=== PATIENT | female | born 1970 | race Caucasian/White ===

== ENCOUNTER 2016-09-04 15:45 | Emergency (ER) | payer SELFPAY | END 2016-09-04 16:00 | disposition left against medical advice (07) | LOC: ED 15:45 | DX: F41.9 Anxiety disorder, unspecified (principal); Z53.21 Procedure and treatment not carried out due to patient leaving prior to being seen by health care provider ==

== ENCOUNTER 2018-09-23 20:47 | Emergency (ER) | payer OTHER ==
--- NOTE | 2018-09-23 21:32 | Emergency Department Report ---
Blank Doc - Documentation Documentation: This is a 48-year-old female that presents with paraspinal cervical pain. Den ies any headache. 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 Denies any injuries. Denies any fever. This initial assessment/diagnostic orders/clinical plan/treatment(s) is/are subject to change based on patient's health status, clinical progression and re- assessment by fellow clinical providers in the ED. Further treatment and workup at subsequent clinical providers discretion. Patient/guardians urged not to elope from the ED as their condition may be serious if not clinically assessed and managed. Initial orders include: 1- Patient sent to [facility] for further evaluation and treatment 2- xr cervical spine
[2018-09-23 21:33] VITALS: BP 140/73
--- NOTE | 2018-09-23 23:32 | XRay Report ---
PROCEDURE: XR SPINE CERVICAL 2-3V TECHNIQUE: Lateral, swimmer's lateral view, AP and odontoid views were obtained. HISTORY: neck pain COMPARISONS: None FINDINGS: No fracture or subluxation is visualized. Posterior elements are intact. The height of the disc space s are well-maintained. Anterior osteophytic spurring is visualized at C5-C6. Minimal posterior osteop hytic spurs are also present at this level. Disc spaces are otherwise well-maintained. IMPRESSION: Mild degenerative disc disease visualized at C5-C6. No other abnormalities are identified.. This document is electronically signed by Jg Mcduffie MD., September 23 2018 11:30:34 PM ET
== END 2018-09-23 22:55 | disposition left against medical advice (07) ==
LOC: ED 20:47
DX: M54.2 Cervicalgia (principal); Z53.21 Procedure and treatment not carried out due to patient leaving prior to being seen by health care provider
CPT/HCPCS: 72040

== ENCOUNTER 2021-04-09 11:46 | Emergency (ER) | payer OTHER ==
--- NOTE | 2021-04-09 12:25 | Event Note ---
ED Screening Note Date of service: 04/09/21 Time: 12:25 ED Screening Note: 50-year-old Portuguese female accompanied by daughter presents to the emergency room complaining of numbness to the back of her head dizziness. She denies any past medical history currently takes no medications on a daily basis has no known drug allergies. Denies any recent traumas. No nausea no vomiting no fever no chills no abdominal pain chest pain or shortness of breath. This initial assessment/diagnostic orders/clinical plan/treatment(s) is/are subject to change based on patients health status, clinical progression and re- assessment by fellow clinical providers in the ED. Further treatment and workup at subsequent clinical providers discretion. Patient/guardian urged not to elope from the ED as their condition may be serious if not clinically assessed and managed. Initial orders include: CBC CMP urinalysis EKG
--- NOTE | 2021-04-09 12:55 | Emergency Department Report ---
ED Dizziness HPI - General Chief Complaint: Weakness Stated Complaint: NUMBNESS HEAD Time Seen by Provider: 04/09/21 12:37 Source: patient Mode of arrival: Ambulatory Limitations: No Limitations - History of Present Illness Initial Comments: 50-year-old female, no past medical history, presents to ED with complaint of dizziness x3 days. Patient states she feels as if she is drunk. States she feels off balance. Patient states she is able to walk, however when she has to turn around, she gets very dizzy. Patient also reports dizziness is worse when changing positions. Patient states while driving 3 days ago, she had an episode where her vision got spotty and she believes that she passed out for few seconds. Patient is also reporting some numbness to the back of her head. She states it is only present for 30 minutes to 1 hour after she wakes up. She denies any numbness to the back of the head right now. She denies any numbness or weakness in her extremities. Patient denies headache. Patient does report some right-sided neck pain. Patient denies nausea or vomiting, chest pain, shortness of breath. MD Complaint: dizziness -: days(s) (3) Description: off-balance, other (feels "drunk") History of Same: No History of Trauma: No Severity: moderate Improves With: remaining still Worsens With: movement, position Associated Symptoms: denies: chest pain, fever/chills, shortness of breath, weakness - Related Data Previous Rx's Medication Instructions Recorded Last Taken Type Meclizine HCl 12.5 mg PO BID #12 tablet 04/09/21 Unknown Rx Allergies Allergy/AdvReac Type Severity Reaction Status Date / Time No Known Allergies Allergy Unverified 09/23/18 21:33 ED Review of Systems ROS: Stated complaint: NUMBNESS HEAD Other details as noted in HPI Comment: All other systems reviewed and negative Constitutional: denies: fever Respiratory: denies: shortness of breath Cardiovascular: denies: chest pain Gastrointestinal: denies: nausea, vomiting Neurological: numbness. denies: headache, weakness ED Past Medical Hx - Past Medical History Previous Medical History?: Yes Additional medical history: elevated cholesterol - Surgical History Past Surgical History?: Yes Additional Surgical History: , hysterectomy - Social History Smoking Status: Current Every Day Smoker - Medications Home Medications: Home Medications Medication Instructions Recorded Confirmed Last Taken Type Meclizine HCl 12.5 mg PO BID #12 tablet 04/09/21 Unknown Rx ED Physical Exam - General Limitations: No Limitations General appearance: alert, in no apparent distress - Head Head exam: Present: atraumatic, normocephalic - Eye Eye exam: Present: normal appearance, PERRL, EOMI. Absent: nystagmus - ENT ENT exam: Present: mucous membranes moist - Neck Neck exam: Present: normal inspection, full ROM. Absent: tenderness, meningismus - Respiratory Respiratory exam: Present: normal lung sounds bilaterally. Absent: respiratory distress - Cardiovascular Cardiovascular Exam: Present: regular rate, normal rhythm - GI/Abdominal GI/Abdominal exam: Present: soft. Absent: distended, tenderness - Extremities Exam Extremities exam: Present: normal inspection - Neurological Exam Neurological exam: Present: alert, oriented X3, CN II-XII intact, abnormal gait (Slightly ataxic). Absent: motor sensory deficit - Psychiatric Psychiatric exam: Present: normal affect, normal mood - Skin Skin exam: Present: warm, dry, intact, normal color ED Course Vital Signs 04/09/21 04/09/21 04/09/21 12:34 12:43 13:42 Temperature 98.6 F Pulse Rate 78 Pulse Rate [ Standing] Respiratory 16 Rate Blood Pressure 132/72 [Right] Blood Pressure [Standing] O2 Sat by Pulse 96 94 97 Oximetry 04/09/21 14:09 Temperature Pulse Rate Pulse Rate [ 74 Standing] Respiratory Rate Blood Pressure [Right] Blood Pressure 131/84 [Standing] O2 Sat by Pulse Oximetry - Reevaluation(s) Reevaluation #1: 04/09/21 15:48 Patient reports no change with the meclizine. - Consultations Consultation #1: 04/09/21 15:[address] Prabhakar, hospitalist, for admission. States he will come down to evaluate and dispo the patient. ED Medical Decision Making - Lab Data Result diagrams: 04/09/21 13:15 04/09/21 13:15 - EKG Data -: EKG Interpreted by Id EKG shows normal: sinus rhythm, axis, intervals, QRS complexes, ST-T waves Rate: normal - EKG Data Interpretation: no acute changes - Radiology Data Radiology results: report reviewed, image reviewed - Medical Decision Making 50-year-old female presents to ED with dizziness x3 days. Patient was slightly ataxic gait on exam. CT head negative. Patient was given meclizine here in the ED. I spoke with Dr. Prabhakar, hospitalist, for admission. Stated that he would come down to evaluate the patient. He does not feel as if hospitalization is warranted. Patient has been discharged by Dr. Prabhakar with prescription for meclizine. - Differential Diagnosis BPV, CVA, orthostatic dizziness Critical care attestation.: If time is entered above; I have spent that time in minutes in the direct care of this critically ill patient, excluding procedure time. ED Disposition Clinical Impression: Dizziness Disposition: 01 HOME / SELF CARE / HOMELESS Is pt being admited?: No Condition: Stable Prescriptions: Meclizine HCl 12.5 mg PO BID #12 tablet Referrals: PRIMARY CARE, [Primary Care Provider] - 3-5 Days
[2021-04-09 13:56] LABS: Basophils # (Auto) 0.1 K/mm3 (0.0-0.1); Basophils % (Auto) 1.2 % (0.0-1.8); Eosinophils # (Auto) 0.2 K/mm3 (0.0-0.4); Eosinophils % (Auto) 2.2 % (0.0-4.3); Hematocrit 46.2 % (30.3-42.9); Hemoglobin 15.4 gm/dl (10.1-14.3); Lymphocytes # (Auto) 2.6 K/mm3 (1.2-5.4); Lymphocytes % (Auto) 31.5 % (13.4-35.0); Mean Corpuscular HGB Conc 33 % (30-34); Mean Corpuscular Volume 93 fl (79-97); Monocytes # (Auto) 0.5 K/mm3 (0.0-0.8); Monocytes % (Auto) 6.4 % (0.0-7.3); Platelet Count 240 K/mm3 (140-440); Red Blood Count 4.99 M/mm3 (3.65-5.03); Red Cell Distribution Width 13.3 % (13.2-15.2)
[2021-04-09 14:14] VITALS: BP 131/84
[2021-04-09 14:14] LABS: Alanine Aminotransferase 52 units/L (7-56); Albumin 4.6 g/dL (3.9-5); Blood Urea Nitrogen 10 mg/dL (7-17); Calcium 9.8 mg/dL (8.4-10.2); Hemolysis Index 33
[2021-04-09] MEDS ORDERED: MECLIZINE 25 MG TAB PO ONE (14:19)
[2021-04-09 14:29] LABS: BUN/Creatinine Ratio 25
[2021-04-09 14:51] LABS: Bilirubin,Urine NEG (Negative); Blood,Urine SM (Negative); Color,Urine Straw (Yellow); Protein,Urine <15 mg/dL mg/dL (Negative); Urobilinogen,Urine < 2.0 mg/dL (<2.0); WBC,Urine < 1.0 /HPF (0.0-6.0)
--- NOTE | 2021-04-09 15:30 | Cat Scan Report ---
CT angio head INDICATION / CLINICAL INFORMATION: 50 years Female; dizziness, neck pain OMNI 350 100M ML. TECHNIQUE: Thin cut axial images obtained through the head during IV bolus contrast administration. S agittal, coronal, and 3 plane MIP reconstructions performed by the technologist. NASCET type criteria used evaluate stenoses. Automated exposure control utilized for radiation reduction purposes. COMPARISON: None available. FINDINGS: INTERNAL CAROTID ARTERIES: There is mild atherosclerotic calcification involving distal internal velasquez tid arteries. However, there is no significant stenosis by NASCET criteria. 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 No significant focal narrowing is identified. CEREBRAL ARTERIES: There is also developmental origin of the right RESORT KEEPER. The proximal cerebral a rteries and adjacent segments otherwise demonstrate appropriate caliber without significant focal efrain nosis or large vessel occlusion. ANEURYSM: None identified. ADDITIONAL FINDINGS: No routine noncontrast CT of the head is available for comparison. There is thic kening of the left maxillary sinus wall indicative of chronic inflammatory changes. Additionally, the re is lucency along the floor and adjacent molar and correlation be needed regarding oral antral fist ramona. IMPRESSION: There is no CTA evidence of significant focal stenosis or large vessel occlusion involving intracrani al vessels. Correlation would be needed in this patient with emergent presentation and history of "di zziness". No routine noncontrast CT head is available for comparison. Signer Name: Noble Rock MD Signed: 04/09/2021 3:26 PM Workstation Name: [id number]
--- NOTE | 2021-04-09 15:34 | Cat Scan Report ---
CT head/brain wo con INDICATION / CLINICAL INFORMATION: 50 years Female; dizziness, neck pain OMNI 350 100M ML. TECHNIQUE: Routine CT head without contrast. All CT scans at this location are performed using CT dos e reduction for ALARA by means of automated exposure control. COMPARISON: None. FINDINGS: BRAIN / INTRACRANIAL CONTENTS: The stat CTA head was completed prior to the emergent CT head and was dictated first. There is ill-defined focus of calcification within the left basal ganglia without surrounding edema. Otherwise, the brain appears to demonstrate appropriate attenuation. The ventricular system is within normal limits in size and configuration. There is no clear CT evidence of acute intracranial hemorrh age or significant mass effect. ORBITS: No significant abnormality of visualized orbits. SINUSES / MASTOIDS: No significant abnormality in the visualized paranasal sinuses or mastoid air talia ls. CRANIOCERVICAL JUNCTION: No significant abnormality. ADDITIONAL FINDINGS: None. IMPRESSION: 1. There is no clear CT evidence of acute intracranial process. Signer Name: Noble Rock MD Signed: 04/09/2021 3:30 PM Workstation Name: [id number]
--- NOTE | 2021-04-09 15:39 | Cat Scan Report ---
CT angio neck INDICATION / CLINICAL INFORMATION: 50 years Female; dizziness, neck pain OMNI 350 100M ML. TECHNIQUE: Thin cut axial images obtained through the head during IV bolus contrast administration. S agittal, coronal, and 3 plane MIP reconstructions performed by the technologist. NASCET type criteria used evaluate stenoses. All CT scans at this location are performed using CT dose reduction for ALAR A by means of automated exposure control. COMPARISON: None available. FINDINGS: CAROTID ARTERIES: There is no significant stenosis involving internal carotid arteries by NASCET crit eria. The carotid bifurcations are widely patent. 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 There is no significant focal narrowing. ARCH: The arch vessels are otherwise unremarkable without stenosis. ADDITIONAL FINDINGS: Remainder of the surrounding soft tissues are grossly normal. IMPRESSION: There is no significant stenosis involving the carotid arteries by NASCET criteria. 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 Signer Name: Noble Rock MD Signed: 04/09/2021 3:34 PM Workstation Name: [id number]
--- NOTE | 2021-04-10 09:09 | Electrocardiograph Report ---
[facility] Test Date: 2021-04-09 Test Time: 13:09:39 Pat Name: YADY BRYAN Department: Room: Gender: F Human Resources Compliance Manager: : [id number] Requested By: CIRILO ZARATE Order Number: [id number] Reading MD: Lui Eugene Measurements Intervals [place] Rate: 68 P: -10 TX: 147 QRS: 67 QRSD: 74 T: 46 QT: 417 QTc: 443 Interpretive Statements Sinus rhythm No previous ECG available for comparison Electronically Signed On 04-10-2021 9:09:25 EDT by Lui Eugene
== END 2021-04-09 16:49 | disposition home or self-care (01) ==
LOC: ED 11:46
DX: R42 Dizziness and giddiness (principal); R20.0 Anesthesia of skin; F17.200 Nicotine dependence, unspecified, uncomplicated; Z90.710 Acquired absence of both cervix and uterus
CPT/HCPCS: 36415; 70450; 70496; 70498; 80053; 81001; 85025; 93005; 99284; Q9967